=== PATIENT | male | born 1955 | race Caucasian/White ===

== ENCOUNTER → 2021-01-23 | Day surgery (SDC) | payer MEDICARE ==
[~2021-01-23] MED LIST: CLEOCIN HCL150 MG PO; NOHOMEMEDICATIONS PO; NORCO 5-325 TA1 EACH PO; NORCO5 PO
--- NOTE | ~2021-01-23 | OP ---
[facility] [address] [place] [address] OPERATIVE REPORT Name: MARIO WORKMAN Room: [facility].#: [id number] Admission: 01/23/21 Attend Phys: Jn Rowell Discharge: Date of : 55 Report #: [id number] THIS REPORT FOR: cc: Ap Yan MD, Anthony MD Patterson,Jn Baxter MD ~ DOC #: [id number] Jn Rowell MD DATE OF SURGERY: 01/23/2021 PREOPERATIVE DIAGNOSIS: Left inguinal hernia. POSTOPERATIVE DIAGNOSIS: Left inguinal hernia. OPERATION: Laparoscopic repair of left inguinal hernia with mesh. SURGEON: Jn Rowell MD ANESTHESIA: General. ESTIMATED BLOOD LOSS: Minimal. SPECIMEN: None. DESCRIPTION OF PROCEDURE: After informed consent was obtained, the patient was brought to the operating room and placed supine. SCDs were placed and working. Preoperative antibiotics were administered. General anesthesia was induced. The abdomen was prepped and draped in the usual sterile fashion. A 10 mm incision was made below the umbilicus. Fascia was incised and a trocar was placed. Pneumoperitoneum was established. Right and left lower quadrant 5 mm trocars were placed. The left ASIS peritoneum was scored. The peritoneum was then incised and the peritoneum was reflected inferiorly. I was able to dissect out the pubic bone. This was identified. The iliac vessels were identified. The cord structures were identified. An indirect hernia sac was then fully reduced. A large Bard 3D Max mesh was inserted. It was tacked to Raffy's ligament with two absorbable tacks. I then reapproximated the peritoneum with a running V-Loc suture. The mesh was 100% covered. The ports were then removed under direct vision. The fascia at the umbilicus was closed with a lnjeha-is-sbjqq 0 Vicryl. Skin was closed with 4-0 Monocryl. Incisions were dressed with Steri-Strips. COMPLICATIONS: None. DISPOSITION: The patient was taken [place] [address] OPERATIVE REPORT Name: MARIO WORKMAN Room: [facility]#: [id number] Admission: 01/23/21 Attend Phys: Jn Rowell Discharge: Date of : 55 Report #: [id number] MD ELSY Rankin/KAYLAN By: [id number] Rowell MD /nt
[2021-01-23 08:35] LABS: HEMATOCRIT 47.7 % (42.0-52.0); MCH 33.2 pg (26.0-34.0); MCHC 33.5 g/dL (28.0-37.0); MCV 99.2 fL (80.0-100.0); MPV 7.3 fl. (7.2-11.1); RBC 4.81 mil/uL (4.50-6.00); RDW-CV 13.2 % (10.5-14.5); WBC 5.3 thou/uL (4.0-11.0)
[2021-01-23 08:37] LABS: CALCIUM 9.3 mg/dL (8.5-10.1); CREATININE 1.2 mg/dL (0.6-1.3)
--- NOTE | 2021-01-26 10:31 | EKG ---
[place] [address] ELECTROCARDIOGRAM REPORT Name: MARIO WORKMAN Room: [facility]#: [id number] Admission: 01/23/21 Attend Phys: Jn Barron Discharge: Date of : 55 Date of Service: 01/23/21 0837 Report #: [id number] THIS REPORT FOR: //name// [facility] Test Date: 2021-01-23 Test Time: 08:37:54 Pat Name: MARIO WORKMAN Department: Room: Gender: Client Services Account Manager: : 1955 Requested By: Jn Rowell Order Number: [id number] Selina TIRADO: Usman Ragland Measurements Intervals [place] Rate: 48 P: 57 IL: 163 QRS: 59 QRSD: 102 T: 64 QT: 450 QTc: 402 Interpretive Statements Sinus bradycardia Compared to ECG 06/20/2008 08:55:22 rate has slowed Electronically Signed On 01-26-2021 10:31:43 CDT by Usman Ragland [email or web address] <ELECTRONICALLY SIGNED> By: Usman Ragland MD, [facility] 01/26/21 1031 0837 6 Usman Ragland MD, [facility] /EPI
== END | disposition home or self-care (01) ==
LOC: M.SUR 07:57
PROVIDERS: ATTEND Surgery
DX: K40.90 Unilateral inguinal hernia, without obstruction or gangrene, not specified as recurrent (principal); Z98.890 Other specified postprocedural states; Z79.899 Other long term (current) drug therapy; Z20.822 Contact with and (suspected) exposure to COVID-19